=== PATIENT | female | born 1955 | race Caucasian/White ===

== ENCOUNTER 2021-04-28 10:39 | Outpatient (REF) | payer MEDICARE, MEDICAID, SELFPAY ==
--- NOTE | ~2021-04-28 | MM_ITS ---
EXAMINATION: MM SCREENING DIGITAL BREAST TOMOSYNTHESIS, BILATERAL CLINICAL INFORMATION: Screening. Asymptomatic. Left breast cancer status post lumpectomy 2013. Right ALH 2016. Due for yearly. COMPARISON: Mammography: 03/20/2019, 09/06/2017, 03/06/2017, 05/31/2016 TECHNIQUE: Digital breast tomosynthesis is performed in both the craniocaudal and mediolateral oblique views along with computer-aided detection (CAD). Synthesized 2D images are generated from the tomosynthesis. Additional exaggerated right CC and left MLO views are provided. FINDINGS: There are scattered areas of fibroglandular density (ACR BI-RADS breast composition Category b). There are post therapy changes posterior outer left breast and postsurgical scarring posterior upper outer right breast. Neither breast shows interval mass or architectural abnormality. The left breast shows no abnormal calcifications. The bilateral axilla are unremarkable. The right breast has interval calcification within the surgical scar, likely dystrophic. Patient will be recalled to obtain additional magnification views. MM/MM tomosynthesis screening BI IMPRESSION: 1. Right: Probable dystrophic calcification within the surgical scar posterior upper outer quadrant. 2. Left: No mammographic evidence of malignancy. ASSESSMENT: BI-RADS 0: Incomplete - Need Additional Imaging Evaluation RECOMMENDATION: 1. Additional views of the right breast (magnification CC, magnification ML). 2. Radiology department staff will contact the patient for additional imaging. This patient's information was entered into a reminder system with a target due date for their next mammogram.
== END 2021-04-28 10:40 | disposition home or self-care (01) ==
LOC: HO.MAMMO 10:39
PROVIDERS: PCP Family Medicine Geriatric Medicine; Visit Provider Internal Medicine
DX: Z12.31 Encounter for screening mammogram for malignant neoplasm of breast (principal)
CPT/HCPCS: 77063; 77067

== ENCOUNTER 2021-05-05 14:23 | Outpatient (REF) | payer MEDICARE, MEDICAID, SELFPAY ==
--- NOTE | ~2021-05-05 | MM_ITS ---
EXAMINATION: MM DIAGNOSTIC DIGITAL MAMMOGRAPHY, BILATERAL CLINICAL INFORMATION: Recall from screening for new calcifications in the right lumpectomy scar upper outer quadrant. COMPARISON: Mammography: 04/28/2021, 03/20/2019; magnification views right breast 04/05/2018 and 02/27/2017 TECHNIQUE: Digital mammography is performed in the following views: Magnification CC, magnification ML FINDINGS: There are scattered areas of fibroglandular density (ACR BI-RADS breast composition Category b). The additional views confirm new relatively coarse diffuse calcifications contained within the lumpectomy scar. These are likely early dystrophic. The scar shows no interval increase in size. No calcifications extending from the scar into the adjacent tissue. There are fine punctate calcifications just lateral and inferior to the scar, similar to prior right magnification views 2017 and 2016. The current exam shows a few new scattered round calcifications superior to the lumpectomy scar, some possibly new. Results are discussed with the patient. Right breast calcifications will be reassessed again in 6 months to include magnification views. MM/MM added views RT IMPRESSION: 1. New calcifications within lumpectomy scar upper outer right breast, likely early dystrophic. 2. Probable benign new scattered round calcifications superior to the lumpectomy scar. 3. Chronic fine punctate calcifications lower outer right breast inferior lateral to the lumpectomy scar. ASSESSMENT: BI-RADS 3: Probably Benign RECOMMENDATION: Diagnostic right mammography to include magnification views in 6 months. This patient's information was entered into a reminder system with a target due date for their next mammogram.
== END 2021-05-05 14:24 | disposition home or self-care (01) ==
LOC: HO.MAMMO 14:23
PROVIDERS: PCP Family Medicine Geriatric Medicine; Visit Provider Family Medicine Geriatric Medicine
DX: R92.1 Mammographic calcification found on diagnostic imaging of breast (principal)
CPT/HCPCS: 77065

== ENCOUNTER 2021-10-23 10:18 | Outpatient (REF) | payer MEDICARE, MEDICAID, SELFPAY ==
[2021-10-24 08:44] LABS: BV Int Neg Control Negative (Negative); BV Int Pos Control Positive (Positive)
== END 2021-10-23 10:19 | disposition home or self-care (01) ==
LOC: HO.LAB 10:18
PROVIDERS: PCP Internal Medicine; Visit Provider Advanced Practice Midwife
DX: N93.9 Abnormal uterine and vaginal bleeding, unspecified (principal); B37.3 Candidiasis of vulva and vagina; Z87.42 Personal history of other diseases of the female genital tract
CPT/HCPCS: 87480; 87510; 87660; 99202

== ENCOUNTER 2021-11-07 12:45 | Outpatient (REF) | payer MEDICARE, MEDICAID, SELFPAY ==
--- NOTE | ~2021-11-07 | MM_ITS ---
EXAMINATION: MM DIAGNOSTIC DIGITAL BREAST TOMOSYNTHESIS, RIGHT CLINICAL INFORMATION: Short interval six-month follow-up probable benign calcifications within lumpectomy scar and superior to the scar right breast upper outer quadrant. Prior history outside stereotactic biopsy at [facility] in 2016 (right atypical lobular hyperplasia with microcalcifications in dense fibrous stroma). Right lumpectomy performed at [facility] 07/11/2016. History contralateral left breast cancer postlumpectomy 03/17/2013 and more recent outside stereotactic biopsy for calcifications 6:00 left breast performed at [facility] (microcalcifications with fibroadenoma and dense fibrous stroma). COMPARISON: Mammography: 05/05/2021 (BI-RADS 3), 04/28/2021 (BI-RADS 0), 03/20/2019, 09/06/2017 TECHNIQUE: Digital breast tomosynthesis is performed in both the craniocaudal and mediolateral oblique views along with computer-aided detection (CAD). Synthesized 2D images are generated from the tomosynthesis. Additional views are obtained: Exaggerated right CC, magnification right CC, magnification ML x2. FINDINGS: There are scattered areas of fibroglandular density (ACR BI-RADS breast composition Category b). There is fibronodular parenchymal pattern similar to prior exam. Lumpectomy scar is stable. There are benign-appearing dystrophic calcifications in scar. The fine calcifications upper right breast superior to the scar are stable from prior diagnostic exam. No interval suspicious change. Results are provided to the patient at time of visit by the technologist. Right breast calcifications will be reassessed again at time of annual bilateral mammography, due in 6 months. MM/MM tomosynthesis diagnostic RT IMPRESSION: -Post lumpectomy changes upper outer right breast with probable benign dystrophic calcifications in the lumpectomy scar and probable benign punctate calcifications superior to the scar. ASSESSMENT: BI-RADS 3: Probably Benign RECOMMENDATION: Diagnostic mammography to include right magnification views at time of annual bilateral exam, due in 6 months. This patient's information was entered into a reminder system with a target due date for their next mammogram.
== END 2021-11-07 12:46 | disposition home or self-care (01) ==
LOC: HO.MAMMO 12:45
PROVIDERS: PCP Internal Medicine; Visit Provider Internal Medicine
DX: R92.8 Other abnormal and inconclusive findings on diagnostic imaging of breast (principal)
CPT/HCPCS: 77061; 77065

== ENCOUNTER 2021-11-15 09:58 | Outpatient (REF) | payer MEDICARE, MEDICAID, SELFPAY ==
[2021-11-18 07:26] LABS: HPV mRNA E6/E7 rflx Not Detected (Not Detected)
== END 2021-11-15 09:59 | disposition home or self-care (01) ==
LOC: HO.LAB 09:58
PROVIDERS: PCP Internal Medicine; Visit Provider Obstetrics & Gynecology
DX: Z12.4 Encounter for screening for malignant neoplasm of cervix (principal); Z11.51 Encounter for screening for human papillomavirus (HPV); N95.0 Postmenopausal bleeding
CPT/HCPCS: 58100; 87624; 88142; 88305

== ENCOUNTER 2021-11-21 12:51 | Outpatient (REF) | payer MEDICARE, MEDICAID, SELFPAY ==
--- NOTE | ~2021-11-21 | US_ITS ---
EXAMINATION: US PELVIS CLINICAL INFORMATION: Abnormal uterine and vaginal bleeding. Postop endometrial biopsy 11/15/2021. COMPARISON: Previous pelvic ultrasound December 2010 TECHNIQUE: Ultrasound of the pelvis is performed using transabdominal transducer. Transvaginal vaginal imaging was not performed due to ongoing bleeding. FINDINGS: The uterus is anteverted and measures 4.5 x 2.2 x 3.6 cm in dimension. No focal uterine lesion is seen. Endometrium does not appear thickened. Endometrial thickness measures 0.2 cm. The right ovary is not seen. The left ovary measures 1.9 x 1.7 x 1.6 cm. There are several small echogenic foci in the left ovary questionable for small calcifications. The left ovary is otherwise normal appearing. There is no fluid in the pelvis. US/US pelvic complete IMPRESSION: Normal thickness endometrium measuring 2 mm.
== END 2021-11-21 12:52 | disposition home or self-care (01) ==
LOC: HO.US 12:51
PROVIDERS: Visit Provider Advanced Practice Midwife
DX: N93.9 Abnormal uterine and vaginal bleeding, unspecified (principal); B37.3 Candidiasis of vulva and vagina; Z87.42 Personal history of other diseases of the female genital tract
CPT/HCPCS: 76856

== ENCOUNTER 2021-12-04 13:00 | Outpatient (REF) | payer MEDICARE, MEDICAID, SELFPAY | END 2021-12-04 13:01 | disposition home or self-care (01) | LOC: HO.LAB 13:00 | PROVIDERS: PCP Internal Medicine; Visit Provider Obstetrics & Gynecology | DX: N95.0 Postmenopausal bleeding (principal) | CPT/HCPCS: 58100; 88305 ==

== ENCOUNTER → 2022-02-07 12:46 | Outpatient (BNVA) | payer MEDICARE, MEDICAID, SELFPAY | PROVIDERS: PCP Internal Medicine; Visit Provider Obstetrics & Gynecology | DX: N95.0 Postmenopausal bleeding (principal) | CPT/HCPCS: 99212 ==

== ENCOUNTER → 2022-04-13 12:58 | Outpatient (BNVA) | payer MEDICARE, MEDICAID, SELFPAY | PROVIDERS: PCP Internal Medicine; Visit Provider Student in an Organized Health Care Education/Training Program | DX: M17.0 Bilateral primary osteoarthritis of knee (principal) | CPT/HCPCS: 99202 ==

== ENCOUNTER 2022-05-11 12:58 | Outpatient (REF) | payer MEDICARE, MEDICAID, SELFPAY ==
--- NOTE | ~2022-05-11 | MM_ITS ---
EXAMINATION: MM DIAGNOSTIC DIGITAL BREAST TOMOSYNTHESIS, BILATERAL CLINICAL INFORMATION: Six-month follow up right breast calcifications. Yearly screening left breast study. Patient status post bilateral breast biopsies and left breast lumpectomy. COMPARISON: Mammography: 11/07/2021 and studies dating back to 02/09/2014. TECHNIQUE: Digital breast tomosynthesis is performed in both the craniocaudal and mediolateral oblique views along with computer-aided detection (CAD). Synthesized 2D images are generated from the tomosynthesis. Additional spot magnification views of the right breast in craniocaudal and 90 degree mediolateral views performed. FINDINGS: The breasts are heterogeneously dense, which may obscure small masses (ACR BI-RADS breast composition Category c). There is a stable appearance of the left breast with postsurgical and postradiation changes being present. No new abnormal dominant mass or suspicious grouping of microcalcifications identified. There is a stable region of postsurgical architectural distortion about the upper outer aspect of the right breast with calcifications which are likely dystrophic. No significant changes seen compared to study of 11/07/2021. Recommend repeat magnification views of the right breast in one year at time of bilateral mammography. Results are provided to the patient at time of visit by the technologist. MM/MM tomosynthesis diagnostic BI IMPRESSION: There are no significant changes from prior study. Recommend repeat magnification views of the right breast in one year. ASSESSMENT: BI-RADS 3: Probably Benign RECOMMENDATION: Diagnostic mammography at time of next annual exam, due in 12 months. This patient's information was entered into a reminder system with a target due date for their next mammogram.
== END 2022-05-11 12:59 | disposition home or self-care (01) ==
LOC: HO.MAMMO 12:58
PROVIDERS: PCP Internal Medicine; Visit Provider Internal Medicine
DX: R92.8 Other abnormal and inconclusive findings on diagnostic imaging of breast (principal)
CPT/HCPCS: 77062; 77066

== ENCOUNTER 2022-11-08 10:59 | Outpatient (REF) | payer MEDICARE, MEDICAID, SELFPAY ==
[2022-11-09 09:55] LABS: BV Int Neg Control Negative (Negative); BV Int Pos Control Positive (Positive)
== END 2022-11-08 11:00 | disposition home or self-care (01) ==
LOC: HO.LNP 10:59
PROVIDERS: PCP Internal Medicine; Visit Provider Obstetrics & Gynecology
DX: B37.31 Acute candidiasis of vulva and vagina (principal)
CPT/HCPCS: 87480; 87510; 87660; 99212